=== PATIENT | female | born 1990 | race Caucasian/White ===

== ENCOUNTER 2017-08-14 12:30 | Outpatient (CLI) | END 2017-08-14 15:25 | disposition home or self-care (01) ==

== ENCOUNTER 2017-11-12 19:22 | Outpatient (CLI) | END 2017-11-12 22:27 | disposition home or self-care (01) ==

== ENCOUNTER 2017-11-17 12:25 | Inpatient (IN) | END 2017-11-21 17:50 | disposition home or self-care (01) | DRG 775 ==

== ENCOUNTER 2018-04-25 21:31 | Emergency (ER) | payer MEDICAID ==
[~2018-04-25] VITALS: Ht 152.4 cm; Wt 47.1 kg
[~2018-04-25 21:31] MED LIST: FER325 PO; PREN-93 PO
[2018-04-25 21:35] VITALS: Ht 152.4 cm; Wt 47.1 kg
[2018-04-25] MEDS ORDERED: ACETAMINOPHEN 500 MG TAB PO STA (23:24)
--- NOTE | 2018-04-25 23:46 | ERD ---
ER Documentation Chief Complaint Chief Complaint N/V, BREWER, weakness X 3 days HPI 27-year-old female complaining of abdominal pain times 5 days. Patient states that she had 2 episodes of nonbloody nonbilious vomiting today, along with decreased appetite. Abdominal pain is in the mid abdomen, comes and goes. Patient also reports vaginal spotting for 2 weeks. States that there dark brown colored, no fresh blood. Patient is 4-month , the baby is formula fed. Denies fever or chills. Denies diarrhea. Denies dysuria. Denies any medical history. ROS All systems reviewed and are negative except as per history of present illness. Medications Home Meds Reported Medications Ferrous Sulfate* (Ferrous Sulfate*) 325 Mg Tabec, 325 MG PO DAILY, TAB 11/12/17 Vit No.124/Iron/FA ( Vitamin Tablet) 1 Each Tablet, 1 EACH PO DAILY, TAB 08/14/17 Allergies Allergies: Coded Allergies: No Known Allergy (Unverified , 11/17/17) PMhx/Soc Medical and Surgical Hx: pt denies Medical Hx, pt denies Surgical Hx Hx Alcohol Use: No Hx Substance Use: No Hx Tobacco Use: No Physical Exam Vitals Vital Signs Date Temp Pulse Resp B/P (MAP) Pulse Ox O2 O2 Flow FiO2 Time Delivery Rate 04/25/18 98.4 71 18 115/66 100 21:35 (82) Physical Exam General: Well-developed, well-nourished, conscious and coherent, in no distress Skin: Warm and dry without rash, good texture and turgor Head: Normocephalic without evidence of trauma Chest: Normal AP diameter. Good expansion without retractions. Nontender. Lungs are clear to auscultate bilaterally with good tidal volume Heart: Regular rate and rhythm. No murmur, rub, or gallops heard Abdomen: Soft, generalized tenderness without masses, guarding, or rebound. Bowel sounds are active. No hepatosplenomegaly Back: Without spinal or CVA tenderness Extremities: Full range of motion. Good strength bilaterally. No erythema, ecchymosis, or edema. Peripheral pulses are intact. Sensation intact Neuro: Alert and oriented 4, GCS 15. Result Diagram: 04/25/18 9420 04/25/18 2330 Results 24 hrs Laboratory Tests Test 04/25/18 23:30 1/25/19 23:37 White Blood Count 11.6 10^3/ul Red Blood Count 4.74 10^6/ul Hemoglobin 13.4 g/dl Hematocrit 42.0 % Mean Corpuscular Volume 88.6 fl Mean Corpuscular Hemoglobin 28.3 pg Mean Corpuscular Hemoglobin Concent 31.9 g/dl Red Cell Distribution Width 12.8 % Platelet Count 263 10^3/UL Mean Platelet Volume 9.7 fl Immature Granulocytes % 0.300 % Neutrophils % 67.1 % Lymphocytes % 26.0 % Monocytes % 4.8 % Eosinophils % 1.2 % Basophils % 0.6 % Nucleated Red Blood Cells % 0.0 /100WBC Immature Granulocytes # 0.040 10^3/ul Neutrophils # 7.8 10^3/ul Lymphocytes # 3.0 10^3/ul Monocytes # 0.6 10^3/ul Eosinophils # 0.1 10^3/ul Basophils # 0.1 10^3/ul Nucleated Red Blood Cells # 0.0 10^3/ul Urine Color YELLOW Urine Clarity SLIGHTLY CLOUDY Urine pH 6.0 Urine Specific [employer] 1.019 Urine Ketones NEGATIVE mg/dL Urine Nitrite NEGATIVE mg/dL Urine Bilirubin NEGATIVE mg/dL Urine Urobilinogen NEGATIVE mg/dL Urine Leukocyte Esterase NEGATIVE Abhishek/ul Urine Microscopic RBC 59 /HPF Urine Microscopic WBC 6 /HPF Urine Squamous Epithelial Cells FEW /HPF Urine Bacteria FEW /HPF Urine Hemoglobin 3+ mg/dL Urine Glucose NEGATIVE mg/dL Urine Total Protein NEGATIVE mg/dl Sodium Level 143 mmol/L Potassium Level 4.2 mmol/L Chloride Level 103 mmol/L Carbon Dioxide Level 25 mmol/L Anion Gap 15 Blood Urea Nitrogen 15 mg/dl Creatinine 0.53 mg/dl Est Glomerular Filtrat Rate mL/min > 60 mL/min Glucose Level 98 mg/dl Calcium Level 9.9 mg/dl Total Bilirubin 0.1 mg/dl Direct Bilirubin 0.00 mg/dl Indirect Bilirubin 0.1 mg/dl Aspartate Amino Transf (AST/SGOT) 29 IU/L Alanine Aminotransferase (ALT/SGPT) 29 IU/L Alkaline Phosphatase 100 IU/L Total Protein 8.1 g/dl Albumin 4.7 g/dl Globulin 3.40 g/dl Albumin/Globulin Ratio 1.38 Lipase 225 U/L POC Beta HCG, Qualitative NEGATIVE Current Medications Medications Dose Sig/Sue Start Time Status Last (Trade) Ordered Route PRN Stop Time Admin Dose Reason Admin 500 mg ONCE STAT 04/25/18 DC 04/25/18 Acetaminophen PO 23:24 23:37 (Tylenol 04/25/18 23:26 Tab) Procedures/MDM Patient presented to ED with abdominal pain times 5 days and vomiting times 1 da y. CBC: Mild leukocytosis, no e/o of severe anemia CMP: no e/o severe acidosis, alkalosis, renal failure, diabetic ketoacidosis, liver disease Lipase: no e/o pancreatitis Urine: no e/o acute infection or hematuria Urine hCG: Negative Likely patient's symptoms are due to a viral illness. Low suspicion for acute appendicitis, cholecystitis, pancreatitis, bowel obstruction, ectopic , ovarian torsion, or ruptured ovarian cyst. As for patient's vaginal bleeding, I advised her that it is normal to have irregular bleeding after childbirth. Her menstruation will gradually return to normal after some time. Patient does not have active vomiting, no sign of dehydration. Patient appears well, stable for discharge and outpatient management. Medical decision making shared with patient and family. Education provided to patient and family. Patient and family expressed understanding of the plan. Medications on discharge: Tylenol. Follow-up: Primary care provider in 2-3 days or return to ED if worse. Disclaimer: Inadvertent spelling and grammatical errors are likely due to EHR/dictation software use and do not reflect on the overall quality of patient care. Also, please note that the electronic time recorded on this note does not necessarily reflect the actual time of the patient encounter. Departure Diagnosis: Primary Impression: Abdominal pain Abdominal location: generalized Qualified Codes: R10.84 - Generalized abdominal pain Condition: Stable CATIA GARZA NP Apr 25, 2018 23:46
[2018-04-26] MEDS ORDERED: ACET500C5 PO (01:16)
[2018-04-26 01:26] VITALS: BP 110/63; PULSE 67; RESP 19
== END 2018-04-26 01:28 | disposition home or self-care (01) ==
LOC: FTE 21:31
DX: R10.84 Generalized abdominal pain (principal); R40.2412 Glasgow coma scale score 13-15, at arrival to emergency department
CPT/HCPCS: 36415; 80053; 81001; 81025; 83690; 85025; Z7502; Z7610; 99283